=== PATIENT | male | born 2005 | race Caucasian/White ===

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

== ENCOUNTER 2024-08-15 18:55 | Emergency (ER) | payer OTHER ==
[2024-08-15 19:04] VITALS: BP 132/55; PULSE 84; RESP 20; TEMP 98; BMI 25.5
[2024-08-15] MEDS ORDERED: ACETAMINOPHEN 500 MG TABLET (FP) ONE (19:31)
[2024-08-15] MEDS ORDERED: LIDOCAINE 4% PATCH TP ONE (19:31)
[2024-08-15] MEDS ORDERED: KETOROLAC TROMETHAMINE 30 MG/1 ML VIAL ONE (19:31)
[2024-08-15] MEDS: ACETAMINOPHEN 500 MG TABLET (FP) PO ONE (19:37)
[2024-08-15] MEDS: KETOROLAC TROMETHAMINE 30 MG/1 ML VIAL IM ONE (19:38)
[2024-08-15] MEDS: LIDOCAINE 4% PATCH TP ONE (19:38)
[2024-08-15] MEDS ORDERED: LIDOCAINE PATCH REMOVAL MC SCH (22:00)
== END 2024-08-15 20:27 | disposition home or self-care (01) ==
LOC: JERFT 18:55 → JER 18:55 → JERFT 20:27
PROC: 3E0233Z Introduction of Anti-inflammatory into Muscle, Percutaneous Approach (ICD-10-PCS; principal; 2024-08-15)
DX: M54.2 Cervicalgia (principal); V49.40XA Driver injured in collision with unspecified motor vehicles in traffic accident, initial encounter; Y92.410 Unspecified street and highway as the place of occurrence of the external cause
CPT/HCPCS: 99284-25